=== PATIENT | female | born 1955 | race African-American/Black ===

== ENCOUNTER 2017-12-06 12:53 | Emergency (ER) | payer OTHER ==
[~2017-12-06] VITALS: Ht 165.1 cm; Wt 65.8 kg
[2017-12-06] MEDS ORDERED: Sodium Chloride 500ML 500 ML IV ONE (14:00)
[2017-12-06 14:20] LABS: APPEARANCE,URINE TURBID; BILIRUBIN, URINE 1+ (NEGATIVE); GLUCOSE, URINE (UA) NEGATIVE (NEGATIVE); KETONES,URINE NEGATIVE (NEGATIVE); LEUKOCYTE ESTERASE ,URINE 3+ (NEGATIVE); NITRITE,URINE NEGATIVE (NEGATIVE); PH,URINE 7 (4.5-8.0); PROTEIN,URINE 1+ (NEGATIVE); UROBILINOGEN,URINE NORMAL MG/DL (0.0-1.0)
[2017-12-06 14:25] LABS: COLOR,URINE YELLOW
[2017-12-06] MEDS ORDERED: cefTRIAXone 1 GM in NS 55 ML IVPB ONE (15:00)
[2017-12-06 15:07] LABS: BASOPHILS % (AUTO) 0.7 % (0.0-2.0); EOSINOPHILS % (AUTO) 1.5 % (0.0-3.0); HEMATOCRIT 30.5 % (37.0-47.0); HEMOGLOBIN 9.9 G/DL (12.0-16.0); LYMPHOCYTES % (AUTO) 37.1 % (20.0-45.0); MEAN CORPUSCULAR VOLUME 84 FL (80-99); MONOCYTES % (AUTO) 8.9 % (1.0-10.0); NEUTROPHILS % (AUTO) 51.8 % (45.0-75.0); PLATELET COUNT 207 K/UL (150-450); RED BLOOD COUNT 3.62 M/UL (4.20-5.40); WHITE BLOOD COUNT 8.7 K/UL (4.8-10.8)
[2017-12-06 15:20] LABS: ANION GAP 9 mmol/L (5-15); BLOOD UREA NITROGEN 16 mg/dL (7-18); CALCIUM 9.6 MG/DL (8.5-10.1); CARBON DIOXIDE 24 MMOL/L (21-32); CHLORIDE 105 MMOL/L (98-107); CREATININE 0.8 MG/DL (0.55-1.30); POTASSIUM 3.9 MMOL/L (3.5-5.1); SODIUM 138 MMOL/L (136-145)
[2017-12-06 15:33] LABS: ALANINE AMINOTRANSFERASE 30 U/L (12-78); ALBUMIN 3.4 G/DL (3.4-5.0); ALBUMIN/GLOBULIN RATIO 0.8 (1.0-2.7); ALKALINE PHOSPHATASE 123 U/L (46-116); BILIRUBIN,TOTAL 0.6 MG/DL (0.2-1.0)
--- NOTE | 2017-12-06 15:41 | Diagnostic Imaging Report ---
Indications: Altered level of consciousness Technique: Spiral acquisitions obtained through the brain. Angled axial and coronal 5 x 5 mm slices were reconstructed. Total dose length product 1363.1 mGycm. CTDI vol(s) 70.38 mGy. Dose reduction achieved using automated exposure control Comparison: None. Findings: Series image degradation due to motion artifact. Per technologist, patient unable to hold still during the exam. No gross acute intracranial hemorrhage or edema, mass effect, nor midline shift. There is mild age-related enlargement of the ventricles and extra axial CSF spaces. Grossly normal nunes-white differentiation. Visualized orbits and sinuses are unremarkable. The mastoids are clear. The calvarium is intact Impression: Limited exam, due to motion artifact No gross acute intracranial bleed or mass effect Mild age-related changes, as described The CT scanner at [facility] is accredited by the [employer] and the scans are performed using protocols designed to limit radiation exposure to as low as reasonably achievable to attain images of sufficient resolution adequate for diagnostic evaluation.
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
[2017-12-06 15:43] LABS: ASPARTATE AMINO TRANSFERASE 40 U/L (15-37)
[2017-12-06 16:06] VITALS: BP 149/68
[2017-12-06] MEDS ORDERED: CEPHALEXIN500 MG ORAL (16:57)
[2017-12-06 17:21] VITALS: BP_SYST 149; BP_SYST 155; BP_DIAS 67; BP_DIAS 68
--- NOTE | 2017-12-08 12:43 | Cardiology Report ---
APPROVED REPORT EKG Measurement Heart [id number] Atrial pacing Low voltage QRS Septal infarct, age undetermined Abnormal ECG
== END 2017-12-06 17:21 | disposition home or self-care (01) ==
LOC: EDBD 12:53 → EMR 13:46
DX: N39.0 Urinary tract infection, site not specified (principal); S80.219A Abrasion, unspecified knee, initial encounter; X58.XXXA Exposure to other specified factors, initial encounter; Y93.9 Activity, unspecified; Y92.89 Other specified places as the place of occurrence of the external cause
CPT/HCPCS: 36415; 70450; 80053; 80329; 81001; 82962; 84443; 84484; 85025; 87086; 93005; 96365; 99284; J0696; J7040